=== PATIENT | female | born 1930 ===

== ENCOUNTER 2019-12-02 18:42 | Inpatient (IN) | payer OTHER ==
[~2019-12-02] VITALS: Ht 165.1 cm; Wt 68.0 kg
[~2019-12-02 18:42] MED LIST: DURICEF500 MG PO; LEVAQUIN750 MG PO; LOVENOX40 MG/0.4 SQ; LOZOL2.5 MG PO
[2019-12-02] MEDS ORDERED: ATACAND4 MG PO (18:54)
[2019-12-02] MEDS ORDERED: LIPITOR20 MG PO (18:55)
[2019-12-02] MEDS ORDERED: BENTYL10 MG/1 ML IM (18:55)
[2019-12-02] MEDS ORDERED: ECOTRIN81 MG PO (18:55)
== END 2019-12-07 15:19 | disposition home or self-care (01) | DRG 390 ==
LOC: ER 18:42 → SEC-K 12-03 11:30 → MEDJ 12-04 17:48
PROVIDERS: ADMIT Surgery; ATTEND Surgery
PROC: 0D9680Z Drainage of Stomach with Drainage Device, Via Natural or Artificial Opening Endoscopic (ICD-10-PCS; 2019-12-02)
PROC: BW21ZZZ Computerized Tomography (CT Scan) of Abdomen and Pelvis (ICD-10-PCS; 2019-12-02)
PROC: 3E0F7SF Introduction of Other Gas into Respiratory Tract, Via Natural or Artificial Opening (ICD-10-PCS; 2019-12-03)
PROC: B24BZZZ Ultrasonography of Heart with Aorta (ICD-10-PCS; 2019-12-03)
PROC: BW21YZZ Computerized Tomography (CT Scan) of Abdomen and Pelvis using Other Contrast (ICD-10-PCS; 2019-12-04)
PROC: 4A12X4Z Monitoring of Cardiac Electrical Activity, External Approach (ICD-10-PCS; principal; 2019-12-05)
DX: K56.51 Intestinal adhesions [bands], with partial obstruction (principal); R07.89 Other chest pain; I10 Essential (primary) hypertension; Z20.828 Contact with and (suspected) exposure to other viral communicable diseases